=== PATIENT | female | born 1955 | race Caucasian/White ===

== ENCOUNTER → 2016-10-27 | Outpatient (CLI) | payer BC, OTHER ==
[~2016-10-27] MED LIST: ACETAMINOPHEN325 M1 PO; ADULT LOW DOSE81 MG PO; KEFLEX500 MG PO; LOMOTIL TABLET1 EACH PO; LOTRISONE; NYSTATIN1 EAC9 TOP; POTASSIUM20 PO; PROTONIX40 M2 PO; TRIAMCINOLONE A80 G2 TOP
== END ==
LOC: HYPER 09:19
DX: I87.312 Chronic venous hypertension (idiopathic) with ulcer of left lower extremity (principal); L97.822 Non-pressure chronic ulcer of other part of left lower leg with fat layer exposed; E66.01 Morbid (severe) obesity due to excess calories; Z72.89 Other problems related to lifestyle

== ENCOUNTER → 2016-12-22 | Outpatient (CLI) | payer BC, OTHER | LOC: HYPER 07:05 | DX: I87.312 Chronic venous hypertension (idiopathic) with ulcer of left lower extremity (principal); L97.822 Non-pressure chronic ulcer of other part of left lower leg with fat layer exposed; E66.01 Morbid (severe) obesity due to excess calories; Z72.89 Other problems related to lifestyle ==

== ENCOUNTER → 2017-01-19 | Outpatient (CLI) | payer BC, OTHER | LOC: HYPER 07:05 | DX: I87.312 Chronic venous hypertension (idiopathic) with ulcer of left lower extremity (principal); L97.821 Non-pressure chronic ulcer of other part of left lower leg limited to breakdown of skin; L03.116 Cellulitis of left lower limb; E66.01 Morbid (severe) obesity due to excess calories; R60.9 Edema, unspecified ==

== ENCOUNTER → 2017-02-16 | Outpatient (CLI) | payer BC, OTHER | LOC: HYPER 06:57 | DX: I87.312 Chronic venous hypertension (idiopathic) with ulcer of left lower extremity (principal); L97.822 Non-pressure chronic ulcer of other part of left lower leg with fat layer exposed; E66.01 Morbid (severe) obesity due to excess calories; R60.9 Edema, unspecified; Z72.89 Other problems related to lifestyle; Z68.41 Body mass index [BMI] 40.0-44.9, adult ==

== ENCOUNTER → 2017-03-16 | Outpatient (CLI) | payer BC, OTHER | LOC: HYPER 07:19 | DX: I87.312 Chronic venous hypertension (idiopathic) with ulcer of left lower extremity (principal); L97.822 Non-pressure chronic ulcer of other part of left lower leg with fat layer exposed; E66.01 Morbid (severe) obesity due to excess calories; Z68.41 Body mass index [BMI] 40.0-44.9, adult; Z72.89 Other problems related to lifestyle ==

== ENCOUNTER → 2017-04-13 | Outpatient (CLI) | payer BC, OTHER | LOC: HYPER 07:18 | DX: I87.312 Chronic venous hypertension (idiopathic) with ulcer of left lower extremity (principal); L97.822 Non-pressure chronic ulcer of other part of left lower leg with fat layer exposed; E66.01 Morbid (severe) obesity due to excess calories; Z68.41 Body mass index [BMI] 40.0-44.9, adult; Z72.89 Other problems related to lifestyle ==